=== PATIENT | male | born 1945 | race Caucasian/White ===

== ENCOUNTER 2020-10-12 11:38 | Day surgery (SDC) | payer MEDICARE ==
[2020-10-11 12:17] VITALS: BMI 25.0
[~2020-10-12 11:38] MED LIST: ALBUTEROL NEB (CONC) 2.5 MG/0.5 ML INHALATION ONE; LACTATED RINGERS 1,000 ML IV SCH; LIDOCAINE 1% (10MG/ML) FOR IV START INTRADERMA PRN; LIDOCAINE 2% (PF) 20 MG/ML 5 ML VIAL INHALATION ONE; LIDOCAINE VISCOUS 300 MG/15 ML CUP MUCOUS MEM ONE; SODIUM CHLORIDE 0.9% 1,000 ML IV SCH
[2020-10-12] MEDS ORDERED: SUCCINYLCHOLINE CHLORIDE 100 MG/5 ML SYR IV ONE (12:38)
[2020-10-12] MEDS ORDERED: LIDOCAINE 1% INJ 10MG/ML (20 ML MDV) ONE (12:38)
[2020-10-12] MEDS ORDERED: PROPOFOL 10 MG/ML 20 ML VIAL IV ONE (12:38)
[2020-10-12] MEDS ORDERED: MIDAZOLAM 2 MG/2 ML VIAL ONE (12:38)
[2020-10-12 12:44] LABS: Glucose,Whole Blood 129 mg/dL (75-99)
[2020-10-12 12:55] LABS: Basophils % (A) 0 %; Eosinophils # (A) 0.1 k/uL (0-0.7); Eosinophils % (A) 1 %; HCT 37.7 % (39.0-53.0); HGB 12.3 gm/dL (13.0-17.5); Lymphocytes # (A) 0.6 k/uL (1.0-4.8); Lymphocytes % (A) 8 %; MCHC 32.8 g/dL (31.0-37.0); MCV 97.6 fL (80.0-100.0); Mean Platelet Volume 6.3; Monocytes # (A) 0.2 k/uL (0-1.0); Monocytes % (A) 2 %; Neutrophils # (A) 7.3 k/uL (1.3-7.7); Neutrophils % (A) 89 %; Platelet Count 226 k/uL (150-450); RBC 3.86 m/uL (4.30-5.90); RDW 13.3 % (11.5-15.5); WBC 8.2 k/uL (3.8-10.6)
--- NOTE | 2020-10-12 13:06 | P.PCN ---
Date of Procedure: 10/12/20 Preoperative Diagnosis: None. Lung cancer, post chemoradiation therapy, post-immunotherapy, rule out underlying infection Postoperative Diagnosis: 1 tracheobronchomalacia 2 copious respiratory secretions/mucous plugging 3 atelectatic right middle lobe and anterior segment of the right upper lobe, no evidence of any endobronchial tumors Procedure(s) Performed: Flexible bronchoscopy, bronchoalveolar lavage of the lingula Anesthesia: MAEGAN Surgeon: Alvarado Kohli Estimated Blood Loss (ml): 0 Pathology: other Condition: stable Disposition: same day Operative Findings: This procedure was done in the endoscopy suite. The patient will intubated and placed on a mechanical ventilator by the [employer]. The patient was intubated by a #8 orotracheal tube. Following intubation, the patient was adequately oxygenated and ventilated and an adapter was attached and orotracheal tube and this facilitated insertion of the flexible bronchoscope down to the lower trachea. Airway inspection was done utilizing a flexible bronchoscope. The visualized airways initially included the distal trachea, main kelechi and bilateral mainstem bronchi. Immediately, note was made of the copious amount of yellowish thick respiratory secretions occupying the right mainstem bronchus and the left mainstem bronchus. Therapeutic airway suctioning was done and the rest of the secretions were evacuated and suctioned out and following that an airway inspection was completed. The bronchoscope was moved to the right upper lobe bronchus. Anterior segment of the right upper lobe bronchus was atelectatic. I was able to push the bronchoscope through the right upper lobe anterior segment orifice and was able to visualize subsegments. No endobronchial tumors and the various segments of the right upper lobe. Bronchus intermedius was patent. The right middle lobe bronchus was quite atelectatic, yet I was able again to push the bronchoscope through the right middle lobe bronchus visualizing the medial and lateral segments and there was no endobronchial tumor. Rest or secretions occupying these subsegments and there were suctioned out. The bronchioloalveolar lavage of the right middle lobe was somewhat a total of 80 mL of fluid was infused and 25-30 mL was suctioned back. Bronchoscope was then moved to the right lower lobe and the various segments of the right lower lobe including the anterior lateral posterior medial basilar density is segments were all patent and within normal limits. 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 Similar secretions were noted in the left upper lobe bronchus lingular segment and therapeutic it was suctioning was done. Airways are patent. Bronchus was a moved to the left left lower lobe and the the different airways of the left lower lobe were also patent. At that point, the bronchoscope was removed. The patient was extubated. Postextubation, and upper airway inspection was done. The patient had normal upper airways. Difficulties was within normal limits. Arytenoids vallecula and the vocal cords were all inspected and there were within normal limits. No issues with mobility or paralysis. Following that, bronchoscope was moved to the subglottic trachea and the entire trachea was visualized. There was significant level of tracheomalacia with dynamic obstruction of the trachea with exhalation and coughing. Some respiratory secretions were identified in the upper trachea. Therapeutic airway suctioning was done. Following that, the bronchoscope was removed and the patient was transferred recovery in stable condition. The lavage from the right middle lobe will be sent for microbial cultures and analysis.
[2020-10-12 13:10] LABS: ALT 21 U/L (4-49); AST 23 U/L (17-59); African American GFR (CKD) >90 (>60 ml/min/1.73 sqM); Albumin 4.1 g/dL (3.5-5.0); Alkaline Phosphatase 71 U/L (38-126); Anion Gap 8 mmol/L; Blood Urea Nitrogen 21 mg/dL (9-20); Calcium 10.1 mg/dL (8.4-10.2); Carbon Dioxide 28 mmol/L (22-30); Chloride 94 mmol/L (98-107); Glucose 140 mg/dL (74-99); Non-African American GFR(CKD) 88 (>60 ml/min/1.73 sqM); Potassium 5.4 mmol/L (3.5-5.1); Sodium 130 mmol/L (137-145); Total Bilirubin 0.5 mg/dL (0.2-1.3); Total Protein 7.1 g/dL (6.3-8.2)
[2020-10-12 13:21] VITALS: TEMP 97.1
[2020-10-12 14:19] VITALS: BP 105/62; PULSE 98; RESP 20
== END 2020-10-12 14:22 | disposition home or self-care (01) ==
LOC: ORWHC2ENDO 11:38
PROVIDERS: ATTEND Internal Medicine Critical Care Medicine
DX: J39.8 Other specified diseases of upper respiratory tract (principal); C34.90 Malignant neoplasm of unspecified part of unspecified bronchus or lung; J44.9 Chronic obstructive pulmonary disease, unspecified; E03.9 Hypothyroidism, unspecified; E11.9 Type 2 diabetes mellitus without complications; E78.00 Pure hypercholesterolemia, unspecified; I10 Essential (primary) hypertension; E78.5 Hyperlipidemia, unspecified; F17.210 Nicotine dependence, cigarettes, uncomplicated; Z79.890 Hormone replacement therapy; Z79.84 Long term (current) use of oral hypoglycemic drugs; Z79.899 Other long term (current) drug therapy; Z79.52 Long term (current) use of systemic steroids; Z88.1 Allergy status to other antibiotic agents
CPT/HCPCS: 87798 ×3; 87496; 87498; 87529; 88108; 88305; 80053; 84443; 85025; 87252; 87502; 87634; 87070; 87205; 87116; 87102; 87077; 87186; 87206; 31624; J2250; J2001; J0330; J2704

== ENCOUNTER → 2020-12-13 | Day surgery (SDC) | payer MEDICARE ==
[2020-12-12 11:21] VITALS: BMI 24.6
[~2020-12-13] MED LIST changes: -ALBUTEROL NEB (CONC) 2.5 MG/0.5 ML INHALATION ONE; +CEFEPIME 2 GM in SODIUM CHLORIDE 0.9% 100 ML IVPB ONE; -LACTATED RINGERS 1,000 ML IV SCH; -LIDOCAINE 1% (10MG/ML) FOR IV START INTRADERMA PRN; +LIDOCAINE 1% INJ 10MG/ML (20 ML MDV) SQ ONE; -LIDOCAINE 2% (PF) 20 MG/ML 5 ML VIAL INHALATION ONE; -LIDOCAINE VISCOUS 300 MG/15 ML CUP MUCOUS MEM ONE; -SODIUM CHLORIDE 0.9% 1,000 ML IV SCH
[2020-12-13 11:29] LABS: Glucose,Whole Blood 117 mg/dL (75-99)
[2020-12-13 11:39] VITALS: BP 95/56; PULSE 103; RESP 1; TEMP 98.7
[2020-12-13 11:42] LABS: Basophils # (A) 0.1 k/uL (0-0.2); Basophils % (A) 1 %; Eosinophils # (A) 0.4 k/uL (0-0.7); Eosinophils % (A) 4 %; HCT 32.4 % (39.0-53.0); HGB 11.1 gm/dL (13.0-17.5); Lymphocytes # (A) 0.4 k/uL (1.0-4.8); Lymphocytes % (A) 5 %; MCH 32.8 pg (25.0-35.0); MCHC 34.3 g/dL (31.0-37.0); MCV 95.7 fL (80.0-100.0); Mean Platelet Volume 6.9; Monocytes # (A) 0.7 k/uL (0-1.0); Monocytes % (A) 7 %; Neutrophils # (A) 7.7 k/uL (1.3-7.7); Neutrophils % (A) 83 %; Platelet Count 189 k/uL (150-450); RBC 3.39 m/uL (4.30-5.90); RDW 13.5 % (11.5-15.5); WBC 9.3 k/uL (3.8-10.6)
[2020-12-13 12:05] LABS: Potassium 4.8 mmol/L (3.5-5.1)
--- NOTE | 2020-12-13 14:25 | IR ---
EXAMINATION TYPE: IR cvc insert >=5 years DATE OF EXAM: 12/13/2020 COMPARISON: NONE CLINICAL HISTORY: Pseudomonas infection Needs long-term intravenous access for antibiotics. PROCEDURE: Hand hygiene obtained with soap and water and alcohol-based hand rub. After informed consent, the skin overlying the left basilic vein was localized with ultrasound and no oswaldo to be compressible and patent. An ultrasound image was obtained and submitted on the patient's c bravo. The overlying skin was prepped and draped and Lidocaine was used for local anesthesia. A skin jasmin was made with a scalpel. Access was gained to the vein under ultrasound guidance with a 21 gau ge needle and a 0.018 inch wire was advanced. Access site was dilated with Peel-Away sheath and cath eter tailored to the appropriate length and advanced such that the distal tip is at the cavoatrial ju nction. Spot image was obtained verifying placement. Catheter was fixed to the skin and a sterile d ressing was placed following hemostasis. Catheter was aspirated and flushed with saline. Patient wa s discharged in stable condition without complication.Maximal barrier technique is utilized. Ultraso und image is documented on the chart. Ultrasound used with sterile technique. Fluoro time and fluoroscopic images submitted to document procedure: 59 intraoperative C-arm images, 0.2 minutes fluoroscopy time IMPRESSION: STATUS POST ULTRASOUND AND FLUOROSCOPIC GUIDED PICC LINE PLACEMENT, READY FOR USE. THIS PROCEDURE WAS PERFORMED BY THE UNDERSIGNED.
== END ==
LOC: CATHCVL 11:00
PROVIDERS: ATTEND Radiology Diagnostic Radiology
DX: J15.9 Unspecified bacterial pneumonia (principal); E03.9 Hypothyroidism, unspecified; E11.9 Type 2 diabetes mellitus without complications; J70.0 Acute pulmonary manifestations due to radiation; E78.00 Pure hypercholesterolemia, unspecified; I10 Essential (primary) hypertension; Z20.822 Contact with and (suspected) exposure to COVID-19; J61 Pneumoconiosis due to asbestos and other mineral fibers; J44.9 Chronic obstructive pulmonary disease, unspecified; Z85.118 Personal history of other malignant neoplasm of bronchus and lung; Z87.891 Personal history of nicotine dependence; Z98.890 Other specified postprocedural states; Z79.84 Long term (current) use of oral hypoglycemic drugs; Z79.890 Hormone replacement therapy; Z79.51 Long term (current) use of inhaled steroids; Z79.52 Long term (current) use of systemic steroids; Z79.899 Other long term (current) drug therapy; Z88.1 Allergy status to other antibiotic agents
CPT/HCPCS: 36573; 80051; 82565; 84520; 85025; 87635; C1751; C1769; J2001; J0692